=== PATIENT | male | born 1965 | race Caucasian/White ===

== ENCOUNTER 2023-12-22 13:54 | Emergency (ER) | payer OTHER, SELFPAY ==
[2023-12-22] VITALS (21 sets, daily range): BP systolic 94–150; BP diastolic 56–99; BMI 29.1
[2023-12-22 14:03] LABS: Glucose - Point of Care 90 mg/dl (70-99)
[2023-12-22 14:22] LABS: % Basophils 0.2 % (0-2); % Eosinophils 0.4 % (0-6); % Immature Granulocytes 0.3 % (0-0.5); % Lymphocytes 11.7 % (20.5-51.1); % Monocytes 5.4 % (1.7-9.3); Absolute Lymphocytes 1.1 10^3/uL (1.2-3.4); Absolute Monocytes 0.5 10^3/uL (0.1-0.6); Hematocrit 37.8 % (39.0-52.0); Hemoglobin 14.1 g/dL (13.0-18.0); Mean Corp Hgb Conc. 37.3 g/dL (33.0-37.0); Mean Corpuscular Hgb 32.9 pg (27.0-31.0); Mean Corpuscular Volume 88.1 fL (80.0-94.0); Mean Platelet Volume 8.1 fL (7.4-10.4); Nucleated Red Blood Cells % 0 % (-); Platelet Count 274 10^3/uL (130-400); Red Blood Cell Count 4.29 10^6/uL (4.70-6.10); Red Cell Dist. Width 11.9 % (11.5-14.5); White Blood Cell Count 9.7 10^3/uL (4.8-10.8)
--- NOTE | 2023-12-22 14:36 | CON.NEURO ---
Neuro Assessment/Plan
Assessment
IMPRESSIONS/RECOMMENDATIONS:
Abrupt change in speech and disorientation at 11:00 today, with worsening at 13:[address] of head showed left temporal lesion and significant edema
Less likely suggestive of metastasis with edema parental diagnosis would include primary [employer] tumor although less likely
Plan
Based on the patient's symptomatology of inability to free-flowing speech, initiate high-dose steroids
Initiate levetiracetam due to lack of clarity regarding whether the patient symptomatology represents seizure activity or not
Check EEG
Check MRI of brain
Perform additional testing if patient remains in the hospital and not transferred to neurosurgically capable facility
Reviewed at length with the patient's who is at bedside.
Consultation
Order
Date of Consultation: 12/22/23
Requesting Provider: Emergency department provider
Reason for Consult: Change in speech
Subjective/Objective
Subjective Data
Date of Service: December 22, 2023
Patient presented to this [facility] emergency department after sudden onset of speech with disorientation beginning at approximately 1100 hrs. today. The patient had recently been found to have a neck mass which was requiring further evaluation by
planned biopsy.
The patient has not had prior episodes which were similar. The patient had progression of symptomatology leading from a vague sense of confusion to [place] difficulty with speech output and comprehension over the course of hours. They then presented
to this [facility] emergency department. No known modifying factors. No known associated symptoms.
Objective Data
Vital Signs
Temp Pulse Resp BP Pulse Ox
36.8 C 72 15 145/75 99
12/22/23 13:58 12/22/23 14:15 12/22/23 14:15 12/22/23 14:14 12/22/23 14:15
Lab Results
12/22/23 14:15
Patient Allergies
No Known Allergies Allergy (Verified 12/22/23 14:02)
Review of Systems
-
Unable to obtain full review of systems at this time due to: Aphasia
History Source: Patient
All other systems: Reviewed and negative
Physical Exam
-
General: No Apparent Distress and Appears Stated Age
Eyes: OU Absent Papilledema, Round OU, [place] Conjunctivae and No Ptosis
HEENT: Anicteric and Moist Mucous Membranes
Neck: Full Range of Motion
Respiratory: No Dyspnea
Cardiac: No JVD
GI: Non-distended
Skin: Unremarkable
Extremities: No Clubbing, No Cyanosis and No Edema
Psych: Negative Intact Judgement/Insight
Extended Neurological Exam
Mood & Affect: Mood Unremarkable and Affect Unremarkable
Attention Span & Concentration: Awake, Alert, Interactive, Unable to Perform 2 Step Request and Other (Does not follow single step request without visual or physical clues)
Memory: Unable to Assess
Tremor: Hand Tremor Absent and Head Tremor Absent
Speech: Quality Unremarkable, Severely Reduced Output and Other (No stuttering and minimal hesitancy. Patient has automatic phrases saying yes and all right to all questions asked with normal tempo.)
Cranial Nerve II: Left Eye: Pupillary Reactivity Unremarkable, Pupillary Size Unremarkable and Unable to Assess Visual Hernandez
Cranial Nerve II: Right Eye: Pupillary Reactivity Unremarkable, Pupillary Size Unremarkable and Unable to Assess Visual Hernandez
Cranial Nerves III, IV, : Extraocular Movement: Grossly Intact
Cranial Nerve V: Facial Sensation: Unable to Assess
Cranial Nerve VII: Facial Symmetry: Normal Facial Symmetry
Cranial Nerve VIII: Hearing: Unremarkable Hearing to Normal Conversational Volume
Cranial Nerves IX, X: Palate Movement: Unable to Assess
Cranial Nerve XII: Tongue Protusion: Unable to Assess
Muscle Strength, Overall: Full Throughout (By indirect testing)
Muscle Bulk & Tone: Bulk Unremarkable and Tone Unremarkable
Pronator Drift: Unable to Assess
Deep Tendon Reflexes: Unremarkable Throughout
Cold Sensation: Unable to Assess
Vibration Sensation: Unable to Assess
Touch Sensation: Unable to Assess
Coordination: Reaches for Objects without Difficulty
Babinski Sign: Absent Bilaterally
Gait & Station: Unable to Assess
Data Reviewed
-
CT Head: Report Reviewed and Image Reviewed
Labs: Report Reviewed
Reviewed with: Physician, Nurse and Family
Old Records: Summarized
Medications
-
Active Medications
Generic Name Dose Route Start Last Admin
Trade Name Fresalomón PRN Reason Stop Dose Admin
Dexamethasone 6 mg 12/23/23 08:00
Dexamethasone 4 Mg Tablet PO 01/20/24 07:59
Q12 MINNA
Methylprednisolone Sodium 258 mls @ 258 mls/hr 12/22/23 14:32
Succinate 1,000 mg/ Sodium IV 12/22/23 15:31
Chloride NOW STA
Home Medications
�Medication �Instructions �Recorded
Lactobac no.2-Bifidobac no.1-S. 1 cap PO DAILY 12/22/23
thermo 112.5 billion cell capsule
(Visbiome)
alpha lipoic acid 1 tab PO DAILY 12/22/23
omega 0-ffd-nuc-fish oil 1,000 mg 1 cap PO DAILY 12/22/23
(120 mg-180 mg) capsule (Fish Oil)
sulfamethoxazole 800 1 tab PO BID 12/22/23
mg-trimethoprim 160 mg tablet
therapeutic multivitamin 1 tab PO DAILY 12/22/23
[2023-12-22 14:43] LABS: ALT (SGPT) 32 U/L (0-50); AST (SGOT) 41 U/L (17-59); Albumin 4.6 g/dl (3.5-5.0); Alkaline Phosphatase 150 U/L (38-126); Blood Urea Nitrogen 16 mg/dl (9-20); Calcium 9.9 mg/dl (8.4-10.2); Carbon Dioxide 22 mmol/L (22-30); Chloride 103 mmol/L (98-107); Glucose 105 mg/dl (70-99); Potassium 4.1 mmol/L (3.5-5.1); Sodium 135 mmol/L (135-145); Total Bilirubin 0.7 mg/dl (0.2-1.3); eGFR > 60.00
[2023-12-22 14:50] LABS: INR 1.01; PT 13.1 Sec (11.4-14.6)
[2023-12-22 14:51] LABS: APTT 31.7 Sec (23.4-35.0)
[2023-12-22 14:54] LABS: Troponin I < 0.012 ng/ml
[2023-12-22] MEDS: KEPPRA 3000 MG IV (15:02)
--- NOTE | 2023-12-22 15:06 | ED.GENMED ---
History of Present Illness
General
Chief Complaint: Change in Mental Status
Time Seen by Provider: 12/22/23 14:16
Travel History
Have you had any contact with someone who has COVID-19?: No
Do you have any symptoms of coronavirus? Fever > 100 degrees, chills, cough, shortness of breath, sore throat, loss of taste or smell, muscle aches, or headache?: No
History of Present Illness
History of Present Illness:
58-year-old male with past history of Guillain-Hernandez� syndrome presents to the emergency department for evaluation of an abrupt change in mental status that occurred approximately 2 hours prior to arrival. Patient was confused and could not answer
questions appropriately, states it was not severe at onset but gradually worsened. On arrival he is profoundly aphasic. She notes that he ate was diagnosed with a 'mass' of the left anterior neck and is undergoing a biopsy for this on
Saturday. No reported night sweats or weight loss recently.
Review of Systems
Review of Systems
Allergies reviewed?: Yes
All Other Systems: ROS reviewed and negative except as documented in HPI and ROS
Phy Exam
Physical Exam
Physical Exam:
GEN: Well appearing, NAD, WDWN
HEENT: Oral mucosa moist, no scleral icterus, no nasal congestion
Cardiac: Regular rate
Lung: No respiratory distress, no tachypnea
MSK: No gross deformity or injuries
Skin: Good color, no pallor or jaundice, no rashes
Neuro: Alert, does not follow commands. Profoundly aphasic. 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 Patient able to follow commands with parents
, Moves all extremities freely with no obvious extremity drift. Unable to perform assessment of limb ataxia. No clear dysarthria but profound aphasia speech is unintelligible, no gaze deficit, response to pinprick of all extremities
Psych: Calm, cooperative
Course
Orders/Labs/Results
Orders:
Orders
12/22/23 14:05
CT Head W/o Cont STROKE ALERT Urgent
Reason For Exam: change in mental status
12/22/23 14:07
EKG [Electrocardiogram (*1)] Urgent
Reason for Study: Other
Other Reason for Exam: change in mental status
EKG- Treatment ONCE
12/22/23 14:14
Cardiac Monitoring- Treatment ONCE
IV Insert/Care/Rem.- Treatment PRN
Vital Signs As Directed
Frequency: Other
Weight As Directed
Frequency: Once
Comment: ZERO STRETCHER SCALE FOR ACCURATE WEIGHT
O2 Therapy [RESP] Urgent
Titrate/Wean O2 to maintain O2 sat greater than (%): 93
Special Instructions: MAINTAIN CONTINUOUS O2 SATS > OR = 93%
12/22/23 14:15
Complete Blood Count/With Diff Urgent
Comprehensive Metabolic Panel Urgent
PTT Urgent
Prothrombin Time Urgent
Troponin I Urgent
12/22/23 14:32
MethylPREDNISolone. [Solu-Medrol] 1,000 mg 0.9% Sodium Chloride 250 ml [Nss] 250 ml IV NOW
12/22/23 14:43
Levetiracetam Injectable [Keppra] 3,000 mg IV NOW STA
12/22/23 15:48
Lorazepam [Ativan] 1 mg IV NOW STA
12/22/23 16:15
Lorazepam [Ativan] 1 mg IV NOW STA
12/23/23 08:00
Dexamethasone [Decadron] 6 mg PO Q12
Abnormal Lab Results
12/22/23
14:15
RBC 4.29 L 10^6/uL
(4.70-6.10)
Hct 37.8 L %
(39.0-52.0)
MCH 32.9 H pg
(27.0-31.0)
MCHC 37.3 H g/dL
(33.0-37.0)
Absolute Neuts (auto) 8.0 H 10^3/uL
(1.4-6.5)
Absolute Lymphs (auto) 1.1 L 10^3/uL
(1.2-3.4)
Neutrophils % 82.0 H %
(42.2-75.2)
Lymphocytes % 11.7 L %
(20.5-51.1)
Glucose 105 H mg/dl
(70-99)
Alkaline Phosphatase 150 H U/L
(38-126)
12/22/23 14:15
12/22/23 14:15
Vital Signs
Initial and Last Documented VS:
Initial Vital Signs
Temp Pulse Resp BP Pulse Ox
98.2 F 67 16 150/85 98
12/22/23 13:58 12/22/23 13:58 12/22/23 13:58 12/22/23 13:58 12/22/23 13:58
Last Documented Vital Signs
Temp Pulse Resp BP Pulse Ox
98.2 F 71 19 108/60 91
12/22/23 13:58 12/22/23 17:45 12/22/23 17:45 12/22/23 17:45 12/22/23 17:00
MDM/Problems Addressed
MDM/Problems Addressed:
Stroke alert called and patient taken promptly to CT scanner where unfortunately a large left temporal mass was identified. After discussion with neurology patient started on high-dose IV steroids as well as antiepileptics prophylactically although
it is not clear he is actively seizing. Arrangements were made to transfer the patient to the neurosurgery service at [facility], Dr. Yady hartman. Patient did become increasingly agitated in the emergency department multiple doses of
IV lorazepam, this is likely driven by his severe aphasia and his inability to communicate. Expected pickup time between 7 and 8 PM tonight. Remained clinically stable until time of signout to Dr Ventura
Comment
Comment:
EKG independently interpreted by me shows normal sinus rhythm at a rate of [address] changes concerning for ischemia
*Critical Care Note
Total Time (30-74mins, 75-104mins- exclusive of procedures): 45 minutes
comment:
Critical care time: 45 minutes
Critical care time was exclusive of: Separately billable procedures, treating other patients, and teaching time
Critical care was necessary to treat or prevent imminent or life-threatening deterioration of the following conditions: New brain mass
Critical care time spent personally by me on the following activities:
[x] Review of old charts
[x] Obtaining history from patient or surrogate
[x] Ordering and review of the laboratory studies
[x] Ordering and review of radiographic studies
[x] Ordering and performing treatments and interventions
[x] Patient patient's response to treatment
[x] Development of treatment plan with patient or surrogate
ED Attending Note
-
Portions of this chart may have been created with voice recognition software.� Occasional wrong word or��sound alike� substitutions may have occurred due to the inherent limitations of voice recognition software.
Discharge Plan
Departure
Patient Disposition: Acute Care Hospital
Date of Disposition: 12/22/23
Time of Disposition: 15:06
Discharge Problem:
Brain mass
Prescriptions:
No Action
Theragen Tablet
1 tab PO DAILY
sulfamethoxazole-trimethoprim 800-160 mg tablet
1 tab PO BID
Visbiome 112.5 billion cell Capsule
1 cap PO DAILY
omega 0-cqn-cdv-fish oil [Fish Oil] 1,000 mg (120 mg-180 mg) Capsule
1 cap PO DAILY
alpha lipoic acid
1 tab PO DAILY
Referrals:
UNKNOWN - PT NOT,INTERVIEWE [Family Provider] -
Hospital Transfer
Other hospital: [facility]
I certify that the patient requires transfer: Yes
Discussed case with accepting physician: Yady
Reason for transfer: higher level of care
Interventions
Interventions:
*Risk Screen - Suicide Last Done: 12/22/23 14:27
*Neglect/Abuse Screening Last Done: 12/22/23 14:27
ED- Fall Risk Assessment Last Done: 12/22/23 15:28
*ED COVID-19 Vaccine History Last Done: 12/22/23 13:58
ED- Pulmonary Assessment Last Done: 12/22/23 15:28
ED- Neurological Assessment Last Done: 12/22/23 15:28
ED- Cardiac Assessment Last Done: 12/22/23 15:28
ED Swallowing Screen Last Done: 12/22/23 14:26
Discharge Date and Time
Print Language: SINHALA
[2023-12-22] MEDS: SOLU-MEDROL 258 MG IV (15:11)
[2023-12-22] MEDS: ATIVAN 1 MG IV ×2 (15:51→16:35)
[2023-12-22 19:54] LABS: Glucose - Point of Care 127 mg/dl (70-99)
== END 2023-12-22 21:31 | disposition short-term general hospital (02) ==
LOC: EMR 13:54
PROVIDERS: Physician Assistant; EMERGENCY PHYSICIAN Emergency Medicine; OTHER PHYSICIAN Psychiatry & Neurology Neurology
DX: G93.9 Disorder of brain, unspecified (principal)
CPT/HCPCS: 99291; 96365; 96375 ×2; 96376; 70450; 80053; 82962; 84484; 85025; 85610; 85730; 93005